=== PATIENT | female | born 2000 ===

== ENCOUNTER 2023-12-02 18:31 | Outpatient (CLI) | payer MEDICAID ==
--- NOTE | 2023-12-02 19:44 | Ultrasound Report ---
PROCEDURE: OB 1st Trimester INDICATIONS: , LOCATION UNKNOWN, VIABILITY - NO TV ORD OUTSIDE/PRIOR DATING DATA: Last menstrual period (LMP): 09/10/2023. LMP-based estimated date of delivery (KAREN): 06/16/2024. First dating scan (date and location): Today. Estimated date of delivery (KAREN) from first dating scan: 07/02/2024. TECHNIQUE: Real-time scanning was performed of the fetus and maternal pelvic organs, with image documentation. COMPARISON: None. FINDINGS: A yolk sac is seen. [place]-rump length measures 2.76 cm corresponding to ultrasound age of 9 weeks and 4 days. Gestational hemorrhage measures 2.4 x 1.6 cm. heart motion measures 182 bpm. Suspected left corpus luteum cyst. IMPRESSION: Living intrauterine gestation at an ultrasound age of 9 weeks and 4 days, which is not consistent wit h reported LMP. Small perigestational hemorrhage. Reviewed by: Cayden Dasilva MD on 12/02/2023 7:43 PM PDT Approved by: Cayden Dasilva MD on 12/02/2023 7:43 PM PDT Station ID: [id number]
== END 2023-12-02 18:32 | disposition home or self-care (01) ==
LOC: DI 18:31
PROVIDERS: ATTEND Obstetrics & Gynecology
DX: O46.91 Antepartum hemorrhage, unspecified, first trimester (principal); Z3A.09 9 weeks gestation of pregnancy

== ENCOUNTER 2024-02-19 16:01 | Outpatient (CLI) | payer MEDICAID ==
--- NOTE | 2024-02-20 11:30 | Ultrasound Report ---
PROCEDURE: OB Anatomy Scan INDICATIONS: SUPERVISION OF OUTSIDE/PRIOR DATING DATA: Last menstrual period (LMP): 09/10/2023. LMP-based estimated date of delivery (KAREN): 06/16/2024. First dating scan (date and location): 12/02/2023. Estimated date of delivery (KAREN) from first dating scan: 07/02/2024. The below data below was generated using the working KAREN of 07/02/2024 TECHNIQUE: Real-time scanning was performed of the fetus, with image documentation and biometric measurements. Endovaginal scanning: Not performed. COMPARISON: 12/02/2023 FINDINGS: General: A single living intrauterine gestation is present. Presentation: Breech Placenta: Placental position is anterior, without previa. Amniotic fluid index: 20.3 cm, 91.9% for gestational age. heart rate: 145 beats per minute. Maternal cervical canal: Closed and measures 3.65 cm long; normal length is 2.5 cm or more. biometrics: Biparietal diameter: 4.99 cm, 21 weeks, 1 day, 59.6% Head circumference: 18.8 cm, 21 weeks, 1 day, 52.2% Abdominal circumference: 17.4 cm, 22 weeks, 3 days, 86.9% Femur length: 3.36 cm, 20 weeks, 4 days, 29.9% Estimated gestational age from initial scan: 20 weeks, 6 days Composite gestational age from present scan: 21 weeks, 1 day Estimated weight and percentile: 427.5 g, 78.5% Measurement variability in biometric dating: +/- 10 days from 12-20 weeks gestation, +/- 2 weeks from 20-30 weeks gestation, +/- 3 weeks at 30 weeks gestation or later. Anatomic survey: Neuro: Ventricles are normal at less than 10 mm. Cisterna magna is normal at 3-11 mm. Cerebellum i s normal in size and morphology. Nuchal skin fold: Normal at less than 6 mm between 14 and 20 weeks gestational age. Face: Nose and lips, facial profile are normal. Spine: No evidence for spina bifida. Heart: 4-chambered heart is present, with normal ventricular outflow tracts. Diaphragm: Diaphragm is intact. Stomach: Left-sided stomach is present. Kidneys: No hydronephrosis. Normal is less than 5 mm in 2nd trimester, less than 7 mm in 3rd trimester. Cord: 3 vessel cord has orthotopic insertion. Bladder: Normal in size. Extremities: Bilateral upper extremities are visualized and are within normal limits. Bilateral lower extremities are suboptimally seen and shows no gross abnormalities. IMPRESSION: 1. Single live intrauterine gestation with fetus in breech presentation. heart rate is 145 bpm. Normal BERNARD at 20.3 cm. Normal growth. Estimated weight is at 78.5%. 2. Slightly limited evaluation of bilateral lower extremities due to position. Rest of the feta l anatomic survey is within normal limits. Reviewed by: Nadeem Dutta MD on 02/20/2024 11:28 AM PDT Approved by: Nadeem Dutta MD on 02/20/2024 11:28 AM PDT Station ID: [id number]
== END 2024-02-19 16:02 | disposition home or self-care (01) ==
LOC: DI 16:01
PROVIDERS: ATTEND Nurse Practitioner Obstetrics & Gynecology
DX: Z34.92 Encounter for supervision of normal pregnancy, unspecified, second trimester (principal)